=== PATIENT | female | born 1980 | race African-American/Black ===

== ENCOUNTER 2025-04-03 19:15 | Emergency (ER) | payer MEDICAID ==
[~2025-04-03] VITALS: Ht 167.6 cm; Wt 86.0 kg
[2025-04-03 19:53] VITALS: TEMP 36.9
[2025-04-03 20:40] LABS: CLARITY URINE CLOUDY (CLEAR); COLOR URINE YELLOW (YELLOW); GLUCOSE URINE 3+ (NEGATIVE); KETONES URINE 3+ (NEGATIVE); LEUKOCYTE ESTERASE URINE 1+ (NEGATIVE); NITRITE URINE POSITIVE (NEGATIVE); OCCULT BLOOD URINE 3+ (NEGATIVE); PH URINE 5.5 (4.5-8.0); PROTEIN URINE 1+ (NEGATIVE); SPECIFIC GRAVITY URINE 1.027 (1.005-1.030); UROBILINOGEN URINE 1.0 E.U./dL (0.2-1.0)
[2025-04-03] MEDS: KETOROLAC 15MG/ML VIAL IM ONE (21:03)
[2025-04-03 21:06] LABS: BACTERIA URINE 2+; RBC URINE TNTC /hpf (0-2); SQUAMOUS EPITHELIAL CELL URINE 1+ /lpf (RARE/1+); WBC URINE 25-50 /hpf (0-2)
[2025-04-03 21:06] LABS: BASOPHILS % 0.4 % (0.0-2.0); EOSINOPHILS % 0.1 % (0.0-5.0); HEMATOCRIT. 41.2 % (36.0-48.0); HEMOGLOBIN. 13.9 g/dL (12.0-16.0); LYMPHOCYTES % 8.0 % (20.0-50.0); MEAN PLATELET VOLUME 9.1 fl (7.4-10.4); MONOCYTES % 10.2 % (2.0-8.0); NEUTROPHILS % 81.3 % (40.0-76.0); PLATELET 217 x1000/uL (130-400); RED BLOOD CELL COUNT 5.28 mill/uL (4.2-5.4); RED CELL DISTRIBUTION WIDTH 15.0 % (11.6-14.6)
[2025-04-03] MEDS: LIDOCAINE 5% PATCH TOP SCH (21:07)
[2025-04-03 21:23] LABS: CREATININE 0.7 mg/dL (0.6-1.0); UREA NITROGEN BLOOD 9 mg/dL (9-23)
[2025-04-03] MEDS ORDERED: CEFP100S5 MT (21:57)
[2025-04-03] MEDS ORDERED: NAPR-1176 MT (21:58)
[2025-04-03 22:13] VITALS: BP 133/85; PULSE 100; RESP 20; O2SAT 100
== END 2025-04-03 22:24 | disposition home or self-care (01) ==
LOC: ER 19:15
DX: N39.0 Urinary tract infection, site not specified (principal); E11.9 Type 2 diabetes mellitus without complications; Z88.0 Allergy status to penicillin; Z98.890 Other specified postprocedural states
CPT/HCPCS: 99283; 80048; 81003; 81025; 85025; 87086; 87186; 87077; 36415; 96372; J1885

== ENCOUNTER 2025-04-22 17:16 | Inpatient (IN) | payer MEDICAID ==
[~2025-04-22] VITALS: Ht 165.1 cm; Wt 84.8 kg
[~2025-04-22 17:16] MED LIST: CEFP100S5 MT; NAPR-1176 MT
[2025-04-22 17:22] VITALS: O2SAT 97
[2025-04-22] MEDS ORDERED: ONDANSETRON HCL 4MG/2ML INJ IV ONE (18:45)
[2025-04-22] MEDS: SODIUM CHLORIDE 0.9% (SEPSIS BOLUS) IV ONE (19:22)
[2025-04-22 19:28] LABS: BASOPHILS % 1.0 % (0.0-2.0); EOSINOPHILS % 0.1 % (0.0-5.0); HEMATOCRIT. 42.3 % (36.0-48.0); HEMOGLOBIN. 14.0 g/dL (12.0-16.0); LYMPHOCYTES % 12.0 % (20.0-50.0); MEAN PLATELET VOLUME 7.6 fl (7.4-10.4); MONOCYTES % 4.7 % (2.0-8.0); NEUTROPHILS % 82.2 % (40.0-76.0); PLATELET 415 x1000/uL (130-400); RED BLOOD CELL COUNT 5.32 mill/uL (4.2-5.4); RED CELL DISTRIBUTION WIDTH 16.5 % (11.6-14.6)
[2025-04-22] MEDS: METRONIDAZOLE 500 MG PREMIX 100 ML IV ONE (19:34)
[2025-04-22 19:44] LABS: CREATININE 0.7 mg/dL (0.6-1.0)
[2025-04-22 19:45] LABS: ETHANOL BLOOD < 10 mg/dL (<10); UREA NITROGEN BLOOD 9 mg/dL (9-23)
[2025-04-22 19:46] LABS: ASPARTATE AMINOTRANSFERASE 14 IU/L (<34); BILIRUBIN DIRECT 0.1 mg/dL (<=3.0); INR 1.0; TROPONIN I HIGH SENSITIVITY < 4 ng/L (3.0-34)
[2025-04-22 19:47] LABS: BILIRUBIN TOTAL 0.5 mg/dL (0.1-1.0); PROTEIN TOTAL 9.3 g/dL (6.0-8.3)
[2025-04-22] MEDS: ONDANSETRON HCL 4MG/2ML INJ IV SCH (19:52)
[2025-04-22] MEDS: ACETAMINOPHEN 1000MG/100ML 100 ML IV ONE (19:52)
[2025-04-22 20:03] LABS: HCG SCREEN NEGATIVE
[2025-04-22] MEDS: CEFTRIAXONE 1GM/50ML 50 ML IV ONE (20:37)
[2025-04-22] MEDS: MORPHINE SULFATE 4 MG/ML INJ (FOR IV/IM USE) IV ONE (22:58)
[2025-04-22 23:55] VITALS: BP 150/85; PULSE 93; RESP 20; TEMP 36.696; TEMP 36.7; O2SAT 100
[2025-04-23] VITALS: BP 150/85; PULSE 93; RESP 20; TEMP 36.7; O2SAT 100
[2025-04-23] MEDS ORDERED: DEXTROSE 50% WATER 50ML SYRINGE IV PRN (00:30)
[2025-04-23] MEDS: PANTOPRAZOLE SODIUM 40 MG/VIAL IV SCH (00:53)
[2025-04-23] MEDS: ONDANSETRON HCL 4MG/2ML INJ IV PRN (00:56)
[2025-04-23 04:00] VITALS: BP 139/81; PULSE 84; RESP 20; TEMP 36.5; O2SAT 100
[2025-04-23] MEDS ORDERED: NALOXONE HCL 0.4MG/ML VIAL IV PRN (04:15)
[2025-04-23] MEDS ORDERED: INSU100V43 SQ (04:39)
[2025-04-23] MEDS ORDERED: METF-1150 MT (04:39)
[2025-04-23] MEDS: MEROPENEM 1G/100ML IV SCH (05:07)
[2025-04-23] MEDS: HYDROCODONE/ACETAMINOPHEN 5/325MG TABLET PO PRN (05:07)
[2025-04-23] MEDS ORDERED: PIPERACILLIN/TAZO 3.375G/50ML 50 ML IV SCH (06:00)
[2025-04-23] MEDS ORDERED: IOHEXOL-300 100 ML BOTTLE ONE (06:50)
[2025-04-23] MEDS: BLOOD SUGAR DIAGNOSTIC STRIP TEST SCH (07:40)
[2025-04-23 08:00] VITALS: BP_SYST 120; BP_SYST 125; BP_DIAS 80; PULSE 90; RESP 20; TEMP 36.9; O2SAT 100
[2025-04-23] MEDS: INSULIN LISPRO 100 UNITS/ML SUBCUT SCH (09:04)
[2025-04-23] MEDS: INSULIN GLARGINE 100 UNITS/ML SUBCUT SCH (09:04)
[2025-04-23] MEDS: SODIUM CHLORIDE 0.45% 1,000 ML IV SCH (13:27)
[2025-04-23] MEDS: MORPHINE SULFATE 2 MG/ML INJ (NOT FOR IM USE) IV PRN (14:17)
[2025-04-23 16:00] VITALS: BP_SYST 120; BP_SYST 125; BP_DIAS 80; PULSE 90; RESP 20; TEMP 36.9; O2SAT 100
[2025-04-23 20:00] VITALS: BP 126/72; PULSE 81; RESP 17; TEMP 36.1; O2SAT 100
[2025-04-24] VITALS: BP 146/82; PULSE 98; RESP 18; TEMP 36.6; O2SAT 100
[2025-04-24 04:00] VITALS: BP 141/82; PULSE 85; RESP 18; TEMP 36.2; O2SAT 100
[2025-04-24 05:14] LABS: CLARITY URINE CLEAR (CLEAR); COLOR URINE YELLOW (YELLOW); GLUCOSE URINE 3+ (NEGATIVE); KETONES URINE 3+ (NEGATIVE); LEUKOCYTE ESTERASE URINE NEGATIVE (NEGATIVE); NITRITE URINE NEGATIVE (NEGATIVE); OCCULT BLOOD URINE TRACE (NEGATIVE); PH URINE 5.5 (4.5-8.0); PROTEIN URINE NEGATIVE (NEGATIVE); SPECIFIC GRAVITY URINE 1.025 (1.005-1.030); UROBILINOGEN URINE 0.2 E.U./dL (0.2-1.0)
[2025-04-24 05:37] LABS: *AMPHETAMINES SCREEN URINE NEGATIVE (NEGATIVE); *BENZODIAZEPINES SCREEN URINE NEGATIVE (NEGATIVE)
[2025-04-24 05:38] LABS: *BARBITURATES SCREEN URINE NEGATIVE (NEGATIVE); *COCAINE SCREEN URINE NEGATIVE (NEGATIVE); CANNABINOID URINE SCREEN PRESUMPTIVE POSITIVE (NEGATIVE); ECSTASY MDMA SCREEN URINE NEGATIVE (NEGATIVE); METHADONE URINE SCREEN NEGATIVE (NEGATIVE); OPIATES URINE SCREEN PRESUMPTIVE POSITIVE (NEGATIVE); PHENCYCLIDINE URINE SCREEN NEGATIVE (NEGATIVE)
[2025-04-24 06:21] LABS: SQUAMOUS EPITHELIAL CELL URINE FEW /lpf (RARE/1+); WBC URINE 0-2 /hpf (0-2)
[2025-04-24 06:33] LABS: RBC URINE 0-2 /hpf (0-2)
[2025-04-24 06:34] LABS: BACTERIA URINE NONE SEEN
[2025-04-24 08:00] VITALS: BP 128/82; PULSE 77; RESP 18; TEMP 36.4; O2SAT 100
[2025-04-24] MEDS ORDERED: IOHEXOL-300 50 ML BOTTLE IV ONE (11:16)
[2025-04-24 12:00] VITALS: BP 131/71; PULSE 69; RESP 20; TEMP 36.7; O2SAT 98
[2025-04-24] MEDS ORDERED: ONDANSETRON HCL 4MG/2ML INJ IV PRN (13:30)
[2025-04-24] MEDS ORDERED: MORPHINE SULFATE 2 MG/ML INJ (NOT FOR IM USE) IV PRN (13:30)
[2025-04-24] MEDS ORDERED: MORPHINE SULFATE 4 MG/ML INJ (FOR IV/IM USE) IV PRN (13:30)
[2025-04-24] MEDS ORDERED: PIPERACILLIN IV SCH (14:00)
[2025-04-24] MEDS ORDERED: TAZOBACTAM IV SCH (14:00)
[2025-04-24] MEDS: SODIUM CHLORIDE 0.9% 3ML FLUSH IVF SCH (14:07)
[2025-04-24] MEDS: DEXT 5%/0.45% NACL KCL 20MEQ/L 1,000 ML IV SCH (15:27)
[2025-04-24 16:00] VITALS: BP 144/79; PULSE 84; RESP 16; TEMP 36.6; O2SAT 97
[2025-04-24] MEDS: HYDROCODONE/ACETAMINOPHEN 5/325MG TABLET PO PRN ×2 (17:18→23:14)
[2025-04-24 18:09] LABS: BASOPHILS % 0.6 % (0.0-2.0); EOSINOPHILS % 0.3 % (0.0-5.0); HEMATOCRIT. 36.4 % (36.0-48.0); HEMOGLOBIN. 12.0 g/dL (12.0-16.0); LYMPHOCYTES % 20.4 % (20.0-50.0); MEAN PLATELET VOLUME 8.4 fl (7.4-10.4); MONOCYTES % 10.0 % (2.0-8.0); NEUTROPHILS % 68.7 % (40.0-76.0); PLATELET 292 x1000/uL (130-400); RED BLOOD CELL COUNT 4.58 mill/uL (4.2-5.4); RED CELL DISTRIBUTION WIDTH 16.5 % (11.6-14.6)
[2025-04-24 18:16] LABS: CREATININE 0.5 mg/dL (0.6-1.0); UREA NITROGEN BLOOD 9 mg/dL (9-23)
[2025-04-24 20:00] VITALS: PULSE 91; RESP 16; TEMP 36.2; O2SAT 96
[2025-04-25] VITALS: PULSE 105; RESP 16; TEMP 35.9; O2SAT 100
[2025-04-25 04:00] VITALS: BP 149/91; PULSE 73; RESP 16; TEMP 36.6; O2SAT 99
[2025-04-25 08:00] VITALS: BP 128/83; PULSE 76; RESP 18; TEMP 37.1; O2SAT 98
[2025-04-25] MEDS ORDERED: LANTUSUD SUBCUT (11:43)
[2025-04-25] MEDS ORDERED: CLOT45CR62 VG (11:43)
[2025-04-25 11:55] VITALS: BP 146/71; PULSE 100; RESP 18; TEMP 97.9
[2025-04-25 12:00] VITALS: BP 146/71; PULSE 100; RESP 20; TEMP 36.6; O2SAT 100
[2025-04-25] MEDS ORDERED: CLOTRIMAZOLE 1% VAGINAL CREAM 45GM VG SCH (21:00)
== END 2025-04-25 14:06 | disposition home or self-care (01) | DRG 248 ==
LOC: ER 17:16 → 7WST 23:11 → EDBEDREQTM 23:34 → EDBEDREQ 23:34 → ENRESERV 23:44
PROVIDERS: ADMIT Internal Medicine; ATTEND Internal Medicine
DX: K35.33 Acute appendicitis with perforation, localized peritonitis, and gangrene, with abscess (principal); K56.699 Other intestinal obstruction unspecified as to partial versus complete obstruction; E11.65 Type 2 diabetes mellitus with hyperglycemia; F17.200 Nicotine dependence, unspecified, uncomplicated; K42.9 Umbilical hernia without obstruction or gangrene; I10 Essential (primary) hypertension; Z88.0 Allergy status to penicillin; Z98.891 History of uterine scar from previous surgery
CPT/HCPCS: 36415; 71045; 74018; 74176; 74177; 80048; 80076; 80305; 80320; 81003; 82962; 83036; 83605; 83735; 84145; 84484; 84703; 85025; 86850; 86900; 87070; 93005; 96365; 96368; 96375; 99285; A4606; J0696; J1815; J2185; J2270; J2405; J2470; J3490; J7030; Q9967; G0480; J0131

== ENCOUNTER 2025-04-25 20:29 | Inpatient (IN) | payer MEDICAID ==
[~2025-04-25] VITALS: Ht 167.6 cm; Wt 76.9 kg
[~2025-04-25 20:29] MED LIST changes: +CLOT45CR62 VG; +INSU100V43 SQ; +LANTUSUD SUBCUT; +METF-1150 MT
[2025-04-25 20:33] VITALS: O2SAT 99
[2025-04-25] MEDS ORDERED: HYDROMORPHONE HCL/PF 2MG/ML INJ IV ONE ×2 (21:45→23:45)
[2025-04-25] MEDS: SODIUM CHLORIDE 0.9% 1,000 ML IV ONE (21:55)
[2025-04-25] MEDS: HYDROMORPHONE HCL/PF 1MG/ML INJ IV NR (21:55)
[2025-04-25] MEDS: ONDANSETRON HCL 4MG/2ML INJ IV ONE (21:55)
[2025-04-25 23:53] LABS: BASOPHILS % 0.6 % (0.0-2.0); EOSINOPHILS % 0.2 % (0.0-5.0); HEMATOCRIT. 37.4 % (36.0-48.0); HEMOGLOBIN. 12.1 g/dL (12.0-16.0); LYMPHOCYTES % 14.3 % (20.0-50.0); MEAN PLATELET VOLUME 8.1 fl (7.4-10.4); MONOCYTES % 10.8 % (2.0-8.0); NEUTROPHILS % 74.1 % (40.0-76.0); PLATELET 217 x1000/uL (130-400); RED BLOOD CELL COUNT 4.63 mill/uL (4.2-5.4); RED CELL DISTRIBUTION WIDTH 16.6 % (11.6-14.6)
[2025-04-26] VITALS (7 sets, daily range): BP systolic 110–155; BP diastolic 64–86; PULSE 77–90; RESP 17–19; TEMP 35.4–36.8; O2SAT 96–100
[2025-04-26 00:06] LABS: CREATININE 0.5 mg/dL (0.6-1.0); UREA NITROGEN BLOOD 6 mg/dL (9-23)
[2025-04-26 00:08] LABS: ASPARTATE AMINOTRANSFERASE 18 IU/L (<34); BILIRUBIN DIRECT 0.2 mg/dL (<=3.0); BILIRUBIN TOTAL 0.7 mg/dL (0.1-1.0); PROTEIN TOTAL 8.0 g/dL (6.0-8.3)
[2025-04-26] MEDS: HYDROMORPHONE HCL/PF 1MG/ML INJ IV SCH (00:26)
[2025-04-26] MEDS ORDERED: OXYCODONE HCL/ACETAMINOPHEN 5/325MG TABLET PO SCH (02:00)
[2025-04-26] MEDS ORDERED: NALOXONE HCL 0.4MG/ML VIAL IV PRN ×2 (02:00→10:00)
[2025-04-26] MEDS: OXYCODONE HCL/ACETAMINOPHEN 5/325MG TABLET PO PRN (03:33)
[2025-04-26] MEDS: SODIUM CHLORIDE 0.9% 1,000 ML IV SCH (03:38)
[2025-04-26] MEDS ORDERED: HYDROCODONE/ACETAMINOPHEN 5/325MG TABLET PO PRN (09:00)
[2025-04-26] MEDS ORDERED: IPRATROPIUM/ALBUTEROL 0.5-3(2.5)MG/3ML NEB HHN PRN (11:30)
[2025-04-26] MEDS ORDERED: DEXTROSE 50% WATER 50ML SYRINGE IV PRN (11:30)
[2025-04-26] MEDS ORDERED: CLONIDINE 0.1MG TABLET PO PRN (11:30)
[2025-04-26] MEDS ORDERED: ACETAMINOPHEN 325MG TABLET PO PRN (11:30)
[2025-04-26] MEDS: INSULIN LISPRO 100 UNITS/ML SUBCUT SCH (12:50)
[2025-04-26] MEDS: BLOOD SUGAR DIAGNOSTIC STRIP TEST SCH (12:51)
[2025-04-26] MEDS: MORPHINE SULFATE 2 MG/ML INJ (NOT FOR IM USE) IV PRN (14:59)
[2025-04-26] MEDS: MEROPENEM 1G/100ML 100 ML IV SCH (14:59)
[2025-04-26] MEDS: HYDROCODONE/ACETAMINOPHEN 5/325MG TABLET PO PRN (18:37)
[2025-04-27] VITALS: BP 122/77; PULSE 82; RESP 17; TEMP 36.4; O2SAT 98
[2025-04-27 04:00] VITALS: BP 139/66; PULSE 68; RESP 18; TEMP 36.3; O2SAT 97
[2025-04-27 08:00] VITALS: BP 146/78; PULSE 85; RESP 20; TEMP 36.6; O2SAT 97
[2025-04-27 12:00] VITALS: BP 150/72; PULSE 90; RESP 18; TEMP 36.4; O2SAT 99
[2025-04-27 16:00] VITALS: BP 156/78; PULSE 77; RESP 18; TEMP 36.5; O2SAT 99
[2025-04-27] MEDS: ONDANSETRON HCL 4MG/2ML INJ IV PRN (16:22)
[2025-04-27 17:28] LABS: HCG SCREEN NEGATIVE
[2025-04-28 19:07] LABS: BASOPHILS % 0.8 % (0.0-2.0); EOSINOPHILS % 0.7 % (0.0-5.0); HEMATOCRIT. 38.2 % (36.0-48.0); HEMOGLOBIN. 12.5 g/dL (12.0-16.0); LYMPHOCYTES % 19.7 % (20.0-50.0); MEAN PLATELET VOLUME 8.3 fl (7.4-10.4); MONOCYTES % 9.8 % (2.0-8.0); NEUTROPHILS % 69.0 % (40.0-76.0); PLATELET 269 x1000/uL (130-400); RED BLOOD CELL COUNT 4.77 mill/uL (4.2-5.4); RED CELL DISTRIBUTION WIDTH 16.2 % (11.6-14.6)
[2025-04-28 19:19] LABS: CREATININE 0.6 mg/dL (0.6-1.0); UREA NITROGEN BLOOD < 5 mg/dL (9-23)
[2025-04-28 20:00] VITALS: BP 146/84; PULSE 98; RESP 20; TEMP 35.6; O2SAT 97
[2025-04-29] VITALS: BP 134/87; PULSE 91; RESP 20; TEMP 36.4; O2SAT 100
[2025-04-29 04:00] VITALS: BP 124/88; PULSE 90; RESP 20; TEMP 36.5; O2SAT 100
[2025-04-29 08:00] VITALS: BP 143/83; PULSE 90; RESP 20; TEMP 36.3; O2SAT 100
[2025-04-29 12:00] VITALS: BP 134/94; PULSE 83; RESP 18; TEMP 36.8; O2SAT 95
[2025-04-29 16:00] VITALS: BP 139/80; PULSE 103; RESP 19; TEMP 36.6; O2SAT 100
[2025-04-29 20:00] VITALS: BP 151/89; PULSE 126; RESP 18; TEMP 36.6; O2SAT 100
[2025-04-29] MEDS: PANTOPRAZOLE SODIUM 40 MG/VIAL IV SCH (21:24)
[2025-04-30] VITALS: BP 110/69; PULSE 105; RESP 18; TEMP 36.2; O2SAT 100
[2025-04-30 12:00] VITALS: BP 145/89; PULSE 120; RESP 18; TEMP 36.4; O2SAT 100
[2025-04-30 13:25] LABS: BASOPHILS % 0.9 % (0.0-2.0); EOSINOPHILS % 1.1 % (0.0-5.0); HEMATOCRIT. 35.3 % (36.0-48.0); HEMOGLOBIN. 11.5 g/dL (12.0-16.0); LYMPHOCYTES % 20.1 % (20.0-50.0); MEAN PLATELET VOLUME 8.3 fl (7.4-10.4); MONOCYTES % 11.0 % (2.0-8.0); NEUTROPHILS % 66.9 % (40.0-76.0); PLATELET 226 x1000/uL (130-400); RED BLOOD CELL COUNT 4.46 mill/uL (4.2-5.4); RED CELL DISTRIBUTION WIDTH 16.2 % (11.6-14.6)
[2025-04-30 13:38] LABS: INR 1.0
[2025-04-30 13:40] LABS: CREATININE 0.6 mg/dL (0.6-1.0); UREA NITROGEN BLOOD 6 mg/dL (9-23)
[2025-04-30 13:43] LABS: PHOSPHORUS 3.0 mg/dL (2.5-4.9)
[2025-04-30 16:00] VITALS: BP 140/81; PULSE 133; RESP 19; TEMP 36.6; O2SAT 100
[2025-05-01] VITALS: BP 132/72; PULSE 101; RESP 19; TEMP 36.3; O2SAT 100
[2025-05-01] MEDS: ACETAMINOPHEN 325MG TABLET PO PRN (02:45)
[2025-05-01] MEDS ORDERED: MELATONIN 3MG TABLET PO PRN (06:00)
[2025-05-01 12:00] VITALS: BP 138/96; PULSE 131; RESP 18; TEMP 36.4; O2SAT 99
[2025-05-01] MEDS ORDERED: METOPROLOL TARTRATE 5MG/5ML VIAL IV PRN (14:30)
[2025-05-01 14:40] VITALS: BP 132/77; PULSE 107
[2025-05-01] MEDS: METOPROLOL TARTRATE 5MG/5ML VIAL IV SCH (15:35)
[2025-05-01 20:00] VITALS: BP 145/79; PULSE 102; RESP 18; TEMP 37.1; O2SAT 97
[2025-05-01 22:05] LABS: BASOPHILS % 0.5 % (0.0-2.0); EOSINOPHILS % 1.5 % (0.0-5.0); HEMATOCRIT. 37.4 % (36.0-48.0); HEMOGLOBIN. 12.2 g/dL (12.0-16.0); LYMPHOCYTES % 22.7 % (20.0-50.0); MEAN PLATELET VOLUME 8.6 fl (7.4-10.4); MONOCYTES % 11.1 % (2.0-8.0); NEUTROPHILS % 64.2 % (40.0-76.0); PLATELET 301 x1000/uL (130-400); RED BLOOD CELL COUNT 4.69 mill/uL (4.2-5.4); RED CELL DISTRIBUTION WIDTH 16.3 % (11.6-14.6)
[2025-05-01 22:18] LABS: CREATININE 0.5 mg/dL (0.6-1.0)
[2025-05-01 22:19] LABS: UREA NITROGEN BLOOD < 5 mg/dL (9-23)
[2025-05-01 22:20] LABS: ASPARTATE AMINOTRANSFERASE 11 IU/L (<34); BILIRUBIN DIRECT 0.3 mg/dL (<=3.0)
[2025-05-01 22:21] LABS: BILIRUBIN TOTAL 0.8 mg/dL (0.1-1.0); PHOSPHORUS 2.7 mg/dL (2.5-4.9); PROTEIN TOTAL 7.9 g/dL (6.0-8.3)
[2025-05-01 22:23] LABS: INR 1.0
[2025-05-02] VITALS: BP_SYST 113; BP_SYST 148; BP_DIAS 56; BP_DIAS 74; PULSE 115; RESP 18; TEMP 37.1; O2SAT 100
[2025-05-02 08:00] VITALS: BP 135/74; PULSE 95; RESP 19; TEMP 36.3; O2SAT 100
[2025-05-02 08:29] LABS: BASOPHILS % 0.7 % (0.0-2.0); EOSINOPHILS % 1.0 % (0.0-5.0); HEMATOCRIT. 39.1 % (36.0-48.0); HEMOGLOBIN. 12.9 g/dL (12.0-16.0); LYMPHOCYTES % 22.2 % (20.0-50.0); MEAN PLATELET VOLUME 8.7 fl (7.4-10.4); MONOCYTES % 10.6 % (2.0-8.0); NEUTROPHILS % 65.5 % (40.0-76.0); PLATELET 322 x1000/uL (130-400); RED BLOOD CELL COUNT 4.88 mill/uL (4.2-5.4); RED CELL DISTRIBUTION WIDTH 16.3 % (11.6-14.6)
[2025-05-02 08:41] LABS: CREATININE 0.7 mg/dL (0.6-1.0); UREA NITROGEN BLOOD < 5 mg/dL (9-23)
[2025-05-02] MEDS ORDERED: CALCIUM CARBONATE 500MG TABLET CHEW PO PRN (11:15)
[2025-05-02] MEDS: TRAMADOL 50MG TABLET PO PRN (11:49)
[2025-05-02 12:00] VITALS: BP 137/85; PULSE 102; RESP 21; TEMP 36.4; O2SAT 99
[2025-05-02] MEDS: MAGNESIUM 2 G PREMIX 50 ML IV SCH (12:01)
[2025-05-02 16:00] VITALS: BP 132/92; PULSE 116; RESP 23; TEMP 36.4; O2SAT 100
[2025-05-02 20:00] VITALS: BP 131/78; PULSE 113; RESP 20; TEMP 36.7; O2SAT 98
[2025-05-02] MEDS: ZOLPIDEM TARTRATE 5MG TABLET PO PRN (21:56)
[2025-05-03] VITALS: BP 114/76; PULSE 105; RESP 19; TEMP 36.6; O2SAT 98
[2025-05-03 04:00] VITALS: BP 124/74; PULSE 98; RESP 19; TEMP 36.5; O2SAT 98
[2025-05-03 08:00] VITALS: BP 115/68; PULSE 91; RESP 18; TEMP 36.6; O2SAT 99
[2025-05-03] MEDS: DIATR MEGLU/DIATRIZOATE SOLN 30ML PO SCH (09:22)
[2025-05-03 10:14] LABS: BASOPHILS % 0.7 % (0.0-2.0); EOSINOPHILS % 2.1 % (0.0-5.0); HEMATOCRIT. 34.6 % (36.0-48.0); HEMOGLOBIN. 11.3 g/dL (12.0-16.0); LYMPHOCYTES % 29.0 % (20.0-50.0); MEAN PLATELET VOLUME 8.7 fl (7.4-10.4); MONOCYTES % 11.6 % (2.0-8.0); NEUTROPHILS % 56.6 % (40.0-76.0); PLATELET 269 x1000/uL (130-400); RED BLOOD CELL COUNT 4.37 mill/uL (4.2-5.4); RED CELL DISTRIBUTION WIDTH 16.3 % (11.6-14.6)
[2025-05-03 10:22] LABS: CREATININE 0.6 mg/dL (0.6-1.0); UREA NITROGEN BLOOD < 5 mg/dL (9-23)
[2025-05-03 10:24] LABS: PHOSPHORUS 2.6 mg/dL (2.5-4.9)
[2025-05-03 12:00] VITALS: BP 138/86; PULSE 105; RESP 16; TEMP 36.6; O2SAT 99
[2025-05-03] MEDS ORDERED: IOHEXOL-300 100 ML BOTTLE ONE (13:16)
[2025-05-03 16:00] VITALS: BP 113/73; PULSE 83; PULSE 90; RESP 19; RESP 21; TEMP 36.4; O2SAT 95; O2SAT 99
[2025-05-03] MEDS: MAGNESIUM 2 G PREMIX 50 ML IV NR (17:36)
[2025-05-03] MEDS: POTASSIUM CHLORIDE 20MEQ TABLET SR PO NR (17:36)
[2025-05-03 20:00] VITALS: BP 126/65; PULSE 102; RESP 18; TEMP 36.6; O2SAT 100
[2025-05-03] MEDS: SODIUM BICARBONATE 50 MEQ in DEXTROSE 5% WATER 950 ML IV SCH (21:48)
[2025-05-04] VITALS: BP 117/63; PULSE 108; RESP 18; TEMP 36.4; O2SAT 99
[2025-05-04 07:28] LABS: CREATININE 0.5 mg/dL (0.6-1.0)
[2025-05-04 07:29] LABS: UREA NITROGEN BLOOD < 5 mg/dL (9-23)
[2025-05-04 08:00] VITALS: BP 107/53; PULSE 94; RESP 18; TEMP 36.7; O2SAT 97
[2025-05-04] MEDS: POTASSIUM CHLORIDE 20MEQ TABLET SR PO NR (09:57)
[2025-05-04] MEDS: KCL 20MEQ/100ML PREMIX 100 ML IV SCH (09:57)
[2025-05-04] MEDS ORDERED: NALOXONE HCL 0.4MG/ML VIAL IV PRN (10:30)
[2025-05-04 12:00] VITALS: BP 127/67; PULSE 100; RESP 17; TEMP 36.5; O2SAT 97
[2025-05-04] MEDS: SODIUM BICARBONATE 650MG TABLET PO SCH (13:31)
[2025-05-04 16:00] VITALS: BP 114/58; PULSE 94; RESP 18; TEMP 36.3; O2SAT 97
[2025-05-04 20:00] VITALS: BP 120/91; PULSE 114; RESP 17; TEMP 36.6; O2SAT 100
[2025-05-05] VITALS: RESP 18
[2025-05-05 04:00] VITALS: BP 118/60; PULSE 95; RESP 17; TEMP 36.4; O2SAT 100
[2025-05-05 08:00] VITALS: BP 124/71; PULSE 81; RESP 18; TEMP 36.5; O2SAT 98
[2025-05-05 09:18] LABS: BASOPHILS % 0.3 % (0.0-2.0); EOSINOPHILS % 2.4 % (0.0-5.0); HEMATOCRIT. 30.6 % (36.0-48.0); HEMOGLOBIN. 10.4 g/dL (12.0-16.0); LYMPHOCYTES % 17.3 % (20.0-50.0); MEAN PLATELET VOLUME 8.6 fl (7.4-10.4); MONOCYTES % 9.8 % (2.0-8.0); NEUTROPHILS % 70.2 % (40.0-76.0); PLATELET 230 x1000/uL (130-400); RED BLOOD CELL COUNT 3.98 mill/uL (4.2-5.4); RED CELL DISTRIBUTION WIDTH 15.9 % (11.6-14.6)
[2025-05-05 09:35] LABS: CREATININE 0.4 mg/dL (0.6-1.0)
[2025-05-05 09:38] LABS: UREA NITROGEN BLOOD < 5 mg/dL (9-23)
[2025-05-05 09:40] LABS: PHOSPHORUS 1.8 mg/dL (2.5-4.9)
[2025-05-05] MEDS: POTASSIUM CHLORIDE 20MEQ TABLET SR PO SCH (10:29)
[2025-05-05] MEDS: MAGNESIUM 2 G PREMIX 50 ML IV SCH (10:29)
[2025-05-05 12:00] VITALS: BP 108/62; PULSE 68; RESP 16; TEMP 36.6; O2SAT 100
[2025-05-05] MEDS: POTASSIUM PHOSPHATE 20 MMOL in DEXT 5% WATER 243.3333 ML IV NR (13:00)
== END 2025-05-05 15:40 | disposition left against medical advice (07) | DRG 247 ==
LOC: ER 20:29 → 6EST 23:25 → EDBEDREQ 04-26 00:04 → EDBEDREQTM 04-26 00:04 → ENRESERV 04-26 00:18 → 6WST 05-01 14:55
PROVIDERS: ADMIT Internal Medicine; ATTEND Internal Medicine
DX: K56.609 Unspecified intestinal obstruction, unspecified as to partial versus complete obstruction (principal); K65.1 Peritoneal abscess; E87.20 Acidosis, unspecified; K92.0 Hematemesis; E11.65 Type 2 diabetes mellitus with hyperglycemia; D50.9 Iron deficiency anemia, unspecified; Z53.29 Procedure and treatment not carried out because of patient's decision for other reasons; I10 Essential (primary) hypertension; F39 Unspecified mood [affective] disorder; E83.42 Hypomagnesemia; E87.6 Hypokalemia; F17.210 Nicotine dependence, cigarettes, uncomplicated; F41.9 Anxiety disorder, unspecified; F12.90 Cannabis use, unspecified, uncomplicated; Z98.891 History of uterine scar from previous surgery; Z59.01 Sheltered homelessness; Z88.0 Allergy status to penicillin; Z79.84 Long term (current) use of oral hypoglycemic drugs
CPT/HCPCS: 36415; 74018; 74177; 80048; 80076; 82962; 83036; 83735; 83880; 84100; 84145; 84703; 85025; 87015; 87045; 87427; 87449; 93005; 94640; 99285; A4606; J1171; J1815; J2185; J2270; J2405; J2470; J3475; J3480; J3490; J7030; J7060; J7070; Q9963; Q9967

== ENCOUNTER 2025-05-12 20:31 | Emergency (ER) | payer MEDICAID ==
[~2025-05-12] VITALS: Ht 177.8 cm; Wt 82.0 kg
[2025-05-12 20:32] VITALS: O2SAT 97
[2025-05-12 22:03] LABS: BASOPHILS % 0.7 % (0.0-2.0); EOSINOPHILS % 1.0 % (0.0-5.0); HEMATOCRIT. 31.2 % (36.0-48.0); HEMOGLOBIN. 10.3 g/dL (12.0-16.0); LYMPHOCYTES % 22.3 % (20.0-50.0); MEAN PLATELET VOLUME 8.6 fl (7.4-10.4); MONOCYTES % 8.8 % (2.0-8.0); NEUTROPHILS % 67.2 % (40.0-76.0); PLATELET 193 x1000/uL (130-400); RED BLOOD CELL COUNT 3.92 mill/uL (4.2-5.4); RED CELL DISTRIBUTION WIDTH 16.7 % (11.6-14.6)
[2025-05-12 22:11] LABS: CREATININE 0.5 mg/dL (0.6-1.0); ETHANOL BLOOD < 10 mg/dL (<10); HCG SCREEN NEGATIVE; UREA NITROGEN BLOOD 8 mg/dL (9-23)
[2025-05-12 22:13] LABS: ASPARTATE AMINOTRANSFERASE 23 IU/L (<34); BILIRUBIN DIRECT 0.1 mg/dL (<=3.0); BILIRUBIN TOTAL 0.2 mg/dL (0.1-1.0); PROTEIN TOTAL 7.3 g/dL (6.0-8.3)
[2025-05-12] MEDS: ONDANSETRON HCL 4MG/2ML INJ IV ONE (23:01)
[2025-05-12] MEDS: KETOROLAC 15MG/ML VIAL IV ONE (23:01)
[2025-05-12] MEDS: PANTOPRAZOLE SODIUM 40 MG/VIAL IV ONE (23:01)
[2025-05-12] MEDS: SODIUM CHLORIDE 0.9% 1,000 ML IV ONE (23:01)
[2025-05-12 23:02] VITALS: BP 122/74; PULSE 92; RESP 16; TEMP 36.7; O2SAT 100
== END 2025-05-12 23:20 | disposition home or self-care (01) ==
LOC: ER 20:31
DX: R55 Syncope and collapse (principal); R11.2 Nausea with vomiting, unspecified; E11.9 Type 2 diabetes mellitus without complications; Z98.890 Other specified postprocedural states; Z79.899 Other long term (current) drug therapy; Z88.0 Allergy status to penicillin; Z88.1 Allergy status to other antibiotic agents
CPT/HCPCS: 80076; 80048; 80320; 84703; 83690; 85025; 36415; 99283; J7030; Z7610; A4606; G0480